=== PATIENT | male | born 1985 | race Caucasian/White ===

== ENCOUNTER 2019-09-24 14:02 | Emergency (ER) | payer OTHER ==
[~2019-09-24] VITALS: Ht 185 cm; Wt 81.6 kg
--- NOTE | 2019-09-24 14:15 | NUR ---
Covid-19 swab obtained and sent to lab.
--- NOTE | 2019-09-24 14:25 | ED Cough/URI ---
General Stated Complaint: COVID SYMPTOMS Source: patient Exam Limitations: no limitations History of Present Illness Date Seen by Provider: Sep 24, 2019 Time Seen by Provider: 14:06 Initial Comments Here with report of cold symptoms including mild fever, fatigue, shortness of breath and mild stomach discomfort that has been going on for a few days. Concerned about COVID-19 and he has to travel to [place] a few days for the of his brother. 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 Timing/Duration: changing over time, other Severity/Quality: mild Prior Episodes/Possible Cause: no prior episodes Modifying Factors: Worse With Activity; Improves With Rest Associated Symptoms: cough, fever/chills, muscle aches, nasal congestion, shortness of breath Allergies and Home Medications Allergies Coded Allergies: No Known Drug Allergies (Unverified , 09/24/19) Patient Home Medication List Home Medication List Reviewed: Yes Review of Systems Review of Systems Constitutional: see HPI; No chills; fever EENTM: nose congestion; No throat pain Respiratory: No cough; short of breath Cardiovascular: no symptoms reported Gastrointestinal: abdominal pain; No nausea, No vomiting Genitourinary: no symptoms reported Musculoskeletal: no symptoms reported Psychiatric/Neurological: No Symptoms Reported All Other Systems Reviewed Negative Unless Noted: Yes Past Doxfuao-Ogvxfg-Smkhdj Hx Past Med/Social Hx: Reviewed Nursing Past Med/Soc Hx Patient Social History Alcohol Use: Regular Use Alcohol Beverage of Choice: Whiskey Recreational Drug Use: No Smoking Status: Current Everyday Smoker Type Used: Cigarettes Past Medical History Surgeries: Yes Abdominal, Orthopedic Respiratory: No Cardiac: No Neurological: No Genitourinary: No Gastrointestinal: No Musculoskeletal: No Endocrine: No Family Medical History Reviewed Nursing Family Hx No Pertinent Family Hx Physical Exam Capillary Refill : Height: '" Weight: lbs. oz. kg; BMI Method: General Appearance: WD/WN, no apparent distress HEENT: PERRL/EOMI, pharyngeal erythema Neck: full range of motion, supple Respiratory: lungs clear, normal breath sounds Cardiovascular: regular rate, rhythm, no murmur Neurologic/Psychiatric: alert, oriented x 3 Skin: normal color, warm/dry Progress/Results/Core Measures Suspected Sepsis SIRS Temperature: Pulse: Respiratory Rate: Blood Pressure / Mean: Results/Orders My Orders Orders - SIMRAN GR MD Coronavirus Sars-Cov-2 So 2018 (09/24/19 14:11) Vital Signs/I&O Capillary Refill : Progress Note : Progress Note Seen and evaluated. COVID-19 screening initiated. No indication for further evaluation at this point. Patient agrees. Discharged home with return precautions. Patient verbalize understanding instructions and agreement with plan. Departure Impression Primary Impression: Viral illness Additional Impression: COVID-19 evaluation Disposition: 01 HOME, SELF-CARE Condition: Stable Departure-Patient Inst. Decision time for Depature: 14:26 Patient Instructions: Coronavirus Disease 2019 (COVID-19) (DC) Add. Discharge Instructions: Drink plenty of fluids and get plenty of rest. You will need to remain on quarantine until test results are noted. If they are negative, you will need to be isolated for 3 days after symptoms resolve. If they are positive, the health department will call you and direct quarantine timeframe. You may take ibuprofen 600 mg every 8 hours as needed for fever or pain. You may take Tylenol/acetaminophen 1000 mg every 8 hours as needed for fever.. Return for worse pain, fever, vomiting, weakness, breathing problems or other concerns as needed. SIMRAN GR MD Sep 24, 2019 14:25
[2019-09-24 14:45] VITALS: BP 149/85
== END 2019-09-24 14:51 | disposition home or self-care (01) ==
LOC: ER 14:04
DX: B34.9 Viral infection, unspecified (principal); F17.210 Nicotine dependence, cigarettes, uncomplicated; Z20.828 Contact with and (suspected) exposure to other viral communicable diseases
CPT/HCPCS: 99282; U0002; 87635

== ENCOUNTER 2019-10-18 03:00 | Emergency (ER) | payer OTHER ==
[~2019-10-18] VITALS: Ht 185 cm; Wt 81.0 kg
--- OUTSIDE RECORDS SUMMARY | 2019-10-18 03:06 | XMS REPORT | Continuity of Care Document ---
Author Organization Unknown Address Unknown Phone Unavailable Allergies Active Description Code Type Severity Reaction Onset Reported/Identified Relationship to Patient Clinical Status Yes No Known Drug Allergies [id number] Drug Allergy Unknown N/A 09/24/2019 Medications There is no data. Problems Date Dx Coded Attending Type Code Diagnosis Diagnosed By 09/24/2019 SIMRAN GR MD, Ot B34.9 VIRAL INFECTION, UNSPECIFIED 09/24/2019 SIMRAN GR MD Ot F17.210 NICOTINE DEPENDENCE, CIGARETTES, UNCOMPL 09/24/2019 SIMRAN GR MD Ot R50.9 FEVER, UNSPECIFIED 09/24/2019 SIMRAN GR MD Ot Z20.828 CONTACT W AND EXPOSURE TO OTH VIRAL COMM 10/01/2019 SIMRAN GR MD Ot B34.9 VIRAL INFECTION, UNSPECIFIED 10/01/2019 SIMRAN GR MD Ot F17.210 NICOTINE DEPENDENCE, CIGARETTES, UNCOMPL 10/01/2019 SIMRAN GR MD Ot R50.9 FEVER, UNSPECIFIED 10/01/2019 SIMRAN GR MD Ot Z20.828 CONTACT W AND EXPOSURE TO OTH VIRAL COMM Procedures There is no data. Results Test Result Range Coronavirus SARS-CoV-2 SO 2018 - 0 14:22 Coronavirus Ab [Units/volume] in Serum Negative Negative Encounters ACCT No. Visit Date/Time Discharge Status Pt. Type Provider Facility Loc./Unit Complaint [id number] 09/24/2019 14:04:00 020 14:51:00 DIS Emergency SIMRAN GR MD [facility] ER COVID SYMPTOMS [id number] 10/18/2019 03:02:[address] Emergency GINNY TORO MD [facility] ER L PINKY PAIN, SWOLLEN
[2019-10-18] MEDS ORDERED: KETOROLAC 60 MG/2 ML VIAL IM ONE (03:30)
[2019-10-18] MEDS ORDERED: LIDOCAINE 1% INJ 20 ML 20 ML VIAL INJ ONE (03:30)
--- NOTE | 2019-10-18 03:34 | ED Upper Extremity ---
General Chief Complaint: Upper Extremity Stated Complaint: L PINKY PAIN, SWOLLEN Nursing Triage Note: Pt to [facility] with c/o left 5th finger swollen after getting sutures placed d/t getting finger cut on a chainsaw yesterday. Pt reports taking ibuprofen and tylenol for the pain. Nursing Sepsis Screen: No Definite Risk Source: patient Exam Limitations: no limitations History of Present Illness Date Seen by Provider: Oct 18, 2019 Time Seen by Provider: 03:16 Initial Comments Patient presents ER by private conveyance with chief complaint that he cannot sleep because the pain in his left pinky finger. He is up visiting a friend and working a chainsaw yesterday when he kept his left pinky finger. He lives in [place]. He had scripts for pain medicine and antibiotics sent to [facility] in [place] but because he did not have his IV he was not able to fill the medicines. He did not fill the antibiotic. He did receive IV antibiotics while he was in the ER. He has an appointment Saturday to see the specialist about his wound. He is not having any fevers or chills nausea vomiting. Since he cannot get pain medicines he's been using a lot of cannabis tonight. He has been using Tylenol and ibuprofen. Allergies and Home Medications Allergies Coded Allergies: No Known Drug Allergies (Unverified , 09/24/19) Patient Home Medication List Home Medication List Reviewed: Yes Review of Systems Constitutional: No chills, No diaphoresis EENTM: No ear discharge, No ear pain Respiratory: No cough, No short of breath Cardiovascular: No chest pain, No edema Gastrointestinal: No abdominal pain, No nausea Genitourinary: No discharge, No dysuria All Other Systems Reviewed Negative Unless Noted: Yes Past Bzyzwhp-Vbkrnr-Huqndx Hx Patient Social History Alcohol Use: Occasionally Uses Number of Drinks Today: GG Alcohol Beverage of Choice: Whiskey Recreational Drug Use: Yes Drug of Choice: marijuana Smoking Status: Current Everyday Smoker Type Used: Cigarettes 2nd Hand Smoke Exposure: No Recent Foreign Travel: No Contact w/Someone Who Travel: No Recent Infectious Disease Expo: No Recent Hopitalizations: No Seasonal Allergies Seasonal Allergies: No Past Medical History Surgeries: Yes Abdominal, Orthopedic Respiratory: No Cardiac: No Neurological: No Genitourinary: No Gastrointestinal: No Musculoskeletal: No Endocrine: No HEENT: No Cancer: No Psychosocial: No Integumentary: No Family Medical History No Pertinent Family Hx Physical Exam Vital Signs Vital Signs - First Documented 10/18/19 03:16 Temp 36.9 Pulse 94 Resp 17 B/P (MAP) 133/97 (109) Pulse Ox 99 O2 Delivery Room Air Capillary Refill : Less Than 3 Seconds Height, Weight, BMI Height: '" Weight: lbs. oz. kg; 23.00 BMI Method: General Appearance: WD/WN, no apparent distress HEENT: PERRL/EOMI, pharynx normal Neck: full range of motion, normal inspection Cardiovascular: normal peripheral pulses, regular rate, rhythm, no edema Respiratory: no respiratory distress, no accessory muscle use Wrist: Yes normal inspection, Yes non-tender, Yes no evidence of injury, Yes normal ROM Hand: normal ROM, Left, laceration (proximal phalanx fifth digit left hand: sutured wound with erythema swelling and tenderness to palpation.), soft tissue tenderness Procedures/Interventions Additional Procedures: Digital Block Progress Left hand fifth digit digital block. Using a combination of half percent Marcaine 50-50 with 1% lidocaine we applied a total of 3 cc in the usual fashion to both sides of the fifth digit. Patient obtained significant relief of his pain. Progress/Results/Core Measures Results/Orders My Orders Orders - GINNY TORO Ketorolac Injection (Toradol Injection) (10/18/19 03:30) Lidocaine 1% Inj 20 Ml (Xylocaine 1% Inj (10/18/19 03:30) Rx-Hydrocodone/Apap 5-325 Mg (Rx-Vicodin (10/18/19 03:45) Medications Given in ED Current Medications Medications Dose Ordered Sig/Edyta Route Start Time Stop Time Status Last Admin Dose Admin Ketorolac Tromethamine 60 mg ONCE ONCE IM 10/18/19 03:30 10/18/19 03:31 DC 10/18/19 03:40 60 MG Lidocaine HCl 20 ml ONCE ONCE INJ 10/18/19 03:30 10/18/19 03:31 DC 10/18/19 03:40 20 ML Vital Signs/I&O 10/18/19 03:16 Temp 36.9 Pulse 94 Resp 17 B/P (MAP) 133/97 (109) Pulse Ox 99 O2 Delivery Room Air Blood Pressure Mean: 109 Progress Progress Note : Time: 03:33 Progress Note Shot of Toradol we'll put a nerve block using bupivacaine, lidocaine and some bicarbonate for buffering. We'll send him home with a take-home pack of hydrocodone if his pain is not under control. Departure Impression Primary Impression: Laceration of finger of left hand Qualified Codes: S61.217D - Laceration without foreign body of left little finger without damage to nail, subsequent encounter Disposition: HOME, SELF-CARE Condition: Improved Departure-Patient Inst. Decision time for Depature: 03:48 Referrals: NO,LOCAL PHYSICIAN (PCP/Family) Primary Care Physician Patient Instructions: Nerve Blocks, Laceration Repair With Stitches (DC), Acute Pain, Adult (DC) Add. Discharge Instructions: Keep the wound clean with regular soap and water. Change the dressing at least daily or more frequently if it becomes soiled. Elevate the hand above the level of your heart to reduce swelling. The nerve block will wear off in about 6-8 hours. Hydrocodone one tablet every 6 hours as necessary for breakthrough pain. Hydrocodone will cause drowsiness and constipation. MiraLAX 1 capful in 6-8 ounces of fluid as necessary for constipation 2-3 times a day. Tylenol 650 mg every 6 hours as necessary for pain. Ibuprofen 600 mg every 6 hours as necessary for pain. Ice applied directly to your finger may be helpful for 20 minutes to reduce pain and swelling for the first couple days. 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 Keep your follow-up appointments as directed. All discharge instructions reviewed with patient and/or family. Voiced understanding. GINNY TORO Oct 18, 2019 03:34
[2019-10-18] MEDS ORDERED: RX-HYDROCODONE/APAP 5/325 MG #4 TAB PK PO PRN (03:45)
[2019-10-18 03:59] VITALS: BP 130/95
== END 2019-10-18 04:04 | disposition home or self-care (01) ==
LOC: EDUNIT# 03:00 → ER 03:02
DX: S61.217D Laceration without foreign body of left little finger without damage to nail, subsequent encounter (principal); F17.210 Nicotine dependence, cigarettes, uncomplicated; W29.3XXD Contact with powered garden and outdoor hand tools and machinery, subsequent encounter
CPT/HCPCS: 99284